=== PATIENT | male | born 1960 ===

== ENCOUNTER 2020-11-10 15:01 | Day surgery (SDC) | payer OTHER ==
[~2020-11-10] VITALS: Ht 177.8 cm; Wt 109.2 kg
[2020-11-10] MEDS ORDERED: LOTENSIN40 MG PO (16:01)
[2020-11-10] MEDS ORDERED: CARAFATE 1GM1 G PO (16:02)
[2020-11-10] MEDS ORDERED: ONE-A-DAY ESSE1 EACH PO (16:03)
[2020-11-10] MEDS ORDERED: HCTZ 25MG TAB25 MG PO (16:03)
[2020-11-10] MEDS ORDERED: FISH OIL 1000MG1 CAP PO (16:03)
[2020-11-10] MEDS ORDERED: PRILOSEC 20MG20 MG PO (16:04)
[2020-11-10] MEDS ORDERED: VITAMIN C500 MG PO (16:04)
[2020-11-10 16:18] VITALS: BP 137/92; PULSE 87; TEMP 98.2
--- NOTE | 2020-11-10 18:45 | NUR ---
Patient to medical room 308 at this time. He is accompanied by his brother who is currently at bedside. Vital signs are stable. Patient is able to ambulate with SBA and is alert and oriented with minimal discomfort. No edema is noted and bowel sounds are present and hypoactive. Will continue to monitor.
[2020-11-10 18:50] VITALS: BP 152/88; PULSE 80
[2020-11-10 19:15] VITALS: BP 147/87; PULSE 80
[2020-11-10 20:00] VITALS: BP 145/91; PULSE 76
--- NOTE | 2020-11-10 20:00 | NUR ---
Patient complains of increased comfort with pain rating of 2/[address] Wilson contacted and orders one time dose of 1000 mg ES Tylenol which is administered. Patient is provided with ice water and is advised to not advance diet tonight, per physician request.
[2020-11-10 21:00] VITALS: BP 141/90; PULSE 80
[2020-11-10 21:45] VITALS: BP 146/78; PULSE 76
--- NOTE | 2020-11-10 22:00 | NUR ---
Patient is provided with discharge paperwork and education at this time. He is escorted out of building by RN. IV has been removed and vital signs have remained stable. Patient will call doctor's office in morning for follow up.
== END 2020-11-10 22:00 | disposition home or self-care (01) ==
LOC: SDCO 15:01 → MEDICAL 19:06 → SDCO 22:00
DX: K80.50 Calculus of bile duct without cholangitis or cholecystitis without obstruction (principal); R17 Unspecified jaundice; I10 Essential (primary) hypertension; K21.9 Gastro-esophageal reflux disease without esophagitis; M19.90 Unspecified osteoarthritis, unspecified site; G89.29 Other chronic pain
CPT/HCPCS: OP; C1769; Q9967